=== PATIENT | male | born 1995 | race African-American/Black ===

== ENCOUNTER 2020-12-07 04:32 | Emergency (ER) | payer MEDICAID ==
[~2020-12-07] VITALS: Ht 170.2 cm; Wt 73.0 kg
[2020-12-07 06:11] VITALS: BP 122/61
== END 2020-12-07 06:17 | disposition home or self-care (01) ==
LOC: ER 04:39
DX: R06.00 Dyspnea, unspecified (principal); F41.9 Anxiety disorder, unspecified; F12.10 Cannabis abuse, uncomplicated; F17.210 Nicotine dependence, cigarettes, uncomplicated
CPT/HCPCS: 93005; 99283

== ENCOUNTER 2020-12-11 18:20 | Emergency (ER) | payer MEDICAID ==
[~2020-12-11] VITALS: Ht 177.8 cm; Wt 78.8 kg
[2020-12-11 19:13] VITALS: BP 115/77
== END 2020-12-11 19:15 | disposition home or self-care (01) ==
LOC: ER 18:20
DX: F41.9 Anxiety disorder, unspecified (principal); R73.03 Prediabetes; F12.10 Cannabis abuse, uncomplicated; F17.210 Nicotine dependence, cigarettes, uncomplicated
CPT/HCPCS: 99283

== ENCOUNTER 2021-04-02 23:30 | Emergency (ER) | payer MEDICAID ==
[~2021-04-02] VITALS: Ht 170.2 cm; Wt 75.0 kg
[2021-04-03 00:25] LABS: BASOPHILS % 0.8 % (0.0-2.0); EOSINOPHILS % 2.2 % (0.0-5.0); HEMATOCRIT. 40.9 % (42.0-52.0); HEMOGLOBIN. 13.2 g/dL (14.0-18.0); LYMPHOCYTES % 55.4 % (20.0-50.0); MEAN CORPUSCULAR HEMOGLOBIN 27.8 pg (28.0-32.0); MEAN PLATELET VOLUME 7.9 fl (7.4-10.4); NEUTROPHILS % 33.6 % (40.0-76.0); PLATELET 336 x1000/uL (130-400); RED BLOOD CELL COUNT 4.76 mill/uL (4.7-6.1); RED CELL DISTRIBUTION WIDTH 13.9 % (11.6-14.6)
[2021-04-03 00:41] LABS: CHLORIDE 105 mEq/L (98-107)
[2021-04-03] MEDS ORDERED: IBUPROFEN 400MG TABLET PO ONE (01:45)
[2021-04-03] MEDS ORDERED: ACETAMINOPHEN 325MG TABLET PO ONE (01:45)
[2021-04-03 02:55] VITALS: BP 90/63
== END 2021-04-03 03:30 | disposition home or self-care (01) ==
LOC: ER 23:30
DX: R07.89 Other chest pain (principal); R51.9 Headache, unspecified; F12.10 Cannabis abuse, uncomplicated
CPT/HCPCS: 36415; 71045; 80053; 83880; 84484; 85025; 93005; 99285